=== PATIENT | female | born 1975 | race Caucasian/White ===

== ENCOUNTER 2020-09-18 20:01 | Emergency (ER) | payer SELFPAY ==
[~2020-09-18] VITALS: Ht 160 cm; Wt 78.0 kg
[2020-09-18 20:07] VITALS: Ht 160 cm; Wt 78.0 kg
[2020-09-18 22:01] VITALS: BP 127/84
== END 2020-09-18 22:12 | disposition home or self-care (01) ==
LOC: ED 20:01
DX: T18.128A Food in esophagus causing other injury, initial encounter (principal); X58.XXXA Exposure to other specified factors, initial encounter; Y93.89 Activity, other specified; Y92.89 Other specified places as the place of occurrence of the external cause; Y99.8 Other external cause status
CPT/HCPCS: J1610; J2060